=== PATIENT | female | born 1955 | race Caucasian/White ===

== ENCOUNTER 2024-07-11 09:53 | Day surgery (SDC) | payer MEDICARE ==
[~2024-07-11 09:53] MED LIST: Metoclopramide 10 MG/2 ML SDV IV PRN
[2024-07-11] MEDS: Sodium Chloride 0.9% 1,000 ML IV SCH (11:19)
[2024-07-11] MEDS ORDERED: Propofol 500 MG/50 ML SDV ONE (12:00)
[2024-07-11 12:46] VITALS: BP 106/49; PULSE 81
== END 2024-07-11 13:50 | disposition home or self-care (01) ==
LOC: LB.SDS 09:53
PROVIDERS: ATTEND Surgery
DX: Z12.11 Encounter for screening for malignant neoplasm of colon (principal); K57.30 Diverticulosis of large intestine without perforation or abscess without bleeding; I10 Essential (primary) hypertension; E78.5 Hyperlipidemia, unspecified; Z79.899 Other long term (current) drug therapy
CPT/HCPCS: 88305; J2704; J7030